=== PATIENT | male | born 2000 | race Caucasian/White ===

== ENCOUNTER 2022-07-21 20:21 | Emergency (ER) | payer OTHER, SELFPAY ==
[2022-07-21 21:49] LABS: HBSAB Concentration Less than 8.00 mIU/mL; HIV (1/2) Antibody/Antigen Non-Reactive (NonReactive); HIV 1/2 INDEX 0.14 S/CO (<1.00); Hep B Surf AB Non-Reactive (NonReactive); Hep C IgG Ab Non-Reactive S/CO (NonReactive)
[2022-07-22 00:03] LABS: Hep C Index 0.09 S/CO (0-0.79)
== END 2022-07-21 21:10 | disposition home or self-care (01) ==
LOC: ERS 20:21
DX: Z77.21 Contact with and (suspected) exposure to potentially hazardous body fluids (principal)
CPT/HCPCS: 36415; 99283